=== PATIENT | male | born 1985 | race Two or more races ===

== ENCOUNTER 2021-10-03 12:29 | Emergency (ER) | payer MEDICAID, OTHER ==
[~2021-10-03] VITALS: Ht 177.8 cm; Wt 74.8 kg
[2021-10-03] MEDS ORDERED: SODIUM CHLORIDE 0.9% 1,000 ML IVB ONE (13:45)
[2021-10-03] MEDS ORDERED: ONDANSETRON HCL 4 MG/2 ML VIAL IV ONE (13:45)
[2021-10-03 16:28] VITALS: BP 133/74
[2021-10-03 17:06] LABS: Hematocrit 45.2 % (41.0-53.0); Hemoglobin 14.5 g/dL (13.5-17.5); Mean Corpuscular Hemoglobin 22.1 pg (28.0-32.0); Mean Corpuscular Hgb Conc. 32.1 g/dL (32.0-36.0); Mean Corpuscular Volume 68.7 fL (80.0-100.0); Red Blood Cells 6.59 10^6/uL (4.5-5.90); Red Cell Distribution Width 15.4 % (11.8-14.3); White Blood Cell 3.6 10^3/uL (4.4-10.8)
[2021-10-03 17:07] LABS: Basophils % (manual) 0 (0.0-2.0); Blast Cells 0; Metamyelocytes % 0; Myelocytes % 0; Promyelocytes % 0; Reactive Lymphocytes 0
[2021-10-03 17:18] LABS: Albumin 3.2 g/dL (3.4-5.0); BUN/Creatinine Ratio 13.2; Calcium 8.1 mg/dL (8.5-10.1); Potassium 3.2 mmol/L (3.5-5.1)
[2021-10-03 17:25] LABS: Bilirubin, Total 0.3 mg/dL (0.2-1.0); Total Protein 7.8 g/dL (6.4-8.2)
[2021-10-03] MEDS ORDERED: ONDA-144 PO (17:44)
[2021-10-03] MEDS ORDERED: POTASSIUM CHL 20 Meq TABLET PO ONE (17:45)
[2021-10-03 19:15] LABS: Band Neutrophils % (manual) 1; Eosinophils % (manual) 0 (0-7); Lymphocytes % (manual) 46 (10.0-50.0); Monocytes % (manual) 7 (0-12)
== END 2021-10-03 18:13 | disposition home or self-care (01) ==
LOC: ER 12:29
DX: K52.9 Noninfective gastroenteritis and colitis, unspecified (principal); F17.210 Nicotine dependence, cigarettes, uncomplicated
CPT/HCPCS: 36415; 74176; 80053; 85007; 85027; 96361; 96374; 99284; J2405; J7030